=== PATIENT | female | born 1990 | race Caucasian/White ===

== ENCOUNTER → 2016-11-28 | Emergency (ER) | payer OTHER ==
[~2016-11-28] VITALS: Ht 157.5 cm; Wt 52.2 kg
[~2016-11-28] MED LIST: birth control pills PO
[2016-11-28 21:00] VITALS: BP 138/86
== END | disposition home or self-care (01) ==
LOC: M ED 21:47
DX: F41.9 Anxiety disorder, unspecified (principal); Z53.21 Procedure and treatment not carried out due to patient leaving prior to being seen by health care provider